=== PATIENT | female | born 1935 | race Caucasian/White ===

== ENCOUNTER 2018-07-21 00:12 | Emergency (ER) | payer BC ==
[~2018-07-21] VITALS: Ht 149.9 cm; Wt 64.5 kg
[2018-07-21] MEDS ORDERED: LORazepam 2 mg/ml vial IV ONE (00:25)
[2018-07-21 00:35] LABS: BASOPHILS # (AUTO) 0.1 X10'3 (0-0.2); BASOPHILS % (AUTO) 0.6 % (0-1); EOSINOPHILS # (AUTO) 0.4 X10'3 (0-0.9); EOSINOPHILS % (AUTO) 3.6 % (0-6); HEMOGLOBIN 12.2 g/dl (12.0-16.0); LYMPHOCYTES # (AUTO) 4.3 X10'3 (1.1-4.8); LYMPHOCYTES % (AUTO) 38.6 % (21-51); MEAN CORPUSCULAR HEMOGLOBIN 30.7 PG (27.0-31.0); MEAN CORPUSCULAR HGB CONC 33.8 g/dL (33.0-36.5); MEAN PLATELET VOLUME 7.8 FL (7.4-10.4); MONOCYTES # (AUTO) 1.2 X10'3 (0-0.9); MONOCYTES % (AUTO) 10.6 % (2-12); NEUTROPHILS # (AUTO) 5.2 X10'3 (1.8-7.7); NEUTROPHILS % (AUTO) 46.6 % (42-75); PLATELET COUNT 371 X10'3 (140-440); RED BLOOD COUNT 3.96 X10'6 (4.20-5.60); RED CELL DISTRIBUTION WIDTH 13.1 % (11.5-14.5); WHITE BLOOD COUNT 11.2 X10'3 (4.5-11.0)
[2018-07-21 00:57] LABS: ALANINE AMINOTRANSFERASE 26 U/L (12-78); ALBUMIN 3.8 G/DL (3.4-5.0); ALBUMIN/GLOBULIN RATIO 1.1 (1.1-1.5); ALKALINE PHOSPHATASE 87 IU/L (46-116); ANION GAP 9 (8-16); ASPARTATE AMINO TRANSFERASE 20 U/L (10-37); BILIRUBIN,TOTAL 0.4 MG/DL (0.1-1.0); BLOOD UREA NITROGEN 15 MG/DL (7-18); BUN/CREATININE RATIO 15.3 (6.6-38.0); CALCIUM 9.3 MG/DL (8.5-10.1); CHLORIDE 96 MMOL/L (99-107); CREATININE 0.98 MG/DL (0.40-0.90); GLUCOSE 90 MG/DL (70-104); MAGNESIUM 1.8 MG/DL (1.5-2.4); SODIUM 132 MMOL/L (135-145); TOTAL CARBON DIOXIDE 27.1 MMOL/L (24-32); TOTAL PROTEIN 7.3 G/DL (6.4-8.2); eGFR 54 ML/MIN
[2018-07-21] MEDS ORDERED: diphenhydrAMINE 50 mg/ml inj IV ONE (01:35)
[2018-07-21 01:54] VITALS: BP 117/68
[2018-07-21 02:28] LABS: D-DIMER 0.37 MG/L FEU (0-0.50)
== END 2018-07-21 01:57 | disposition home or self-care (01) ==
LOC: ER 00:12
DX: R07.89 Other chest pain (principal); R05 Cough; F32.9 Major depressive disorder, single episode, unspecified; E78.00 Pure hypercholesterolemia, unspecified; I10 Essential (primary) hypertension; F41.9 Anxiety disorder, unspecified; Z88.2 Allergy status to sulfonamides
CPT/HCPCS: 36415; 71045; 80053; 83735; 83880; 84145; 84484; 85025; 85379; 93005; 96374; 96375; 99284; J1200; J2060

== ENCOUNTER 2019-08-03 06:58 | Inpatient (IN) | payer BC ==
[2019-07-28 10:30] LABS: BASOPHILS # (AUTO) 0.1 X10'3 (0-0.2); BASOPHILS % (AUTO) 0.8 % (0-1); EOSINOPHILS # (AUTO) 0.2 X10'3 (0-0.9); EOSINOPHILS % (AUTO) 2.8 % (0-6); LYMPHOCYTES # (AUTO) 2.5 X10'3 (1.1-4.8); LYMPHOCYTES % (AUTO) 33.3 % (21-51); MEAN CORPUSCULAR HEMOGLOBIN 30.9 PG (27.0-31.0); MEAN CORPUSCULAR HGB CONC 33.8 g/dL (33.0-36.5); MEAN CORPUSCULAR VOLUME 91.3 FL (78-98); MEAN PLATELET VOLUME 8.2 FL (7.4-10.4); MONOCYTES # (AUTO) 0.7 X10'3 (0-0.9); MONOCYTES % (AUTO) 9.5 % (2-12); NEUTROPHILS # (AUTO) 4.1 X10'3 (1.8-7.7); NEUTROPHILS % (AUTO) 53.6 % (42-75); PRE OP HEMATOCRIT 37.9 % (35.0-45.0); PRE OP HEMOGLOBIN 12.8 g/dL (12.0-16.0); PRE OP PLATELET COUNT 364 X10'3 (140-440); RED BLOOD COUNT 4.15 X10'6 (4.20-5.60); RED CELL DISTRIBUTION WIDTH 13.6 % (11.5-14.5)
[2019-07-28 10:36] LABS: PRE OP PROTIME 10.3 SECONDS (9.0-12.0)
[2019-07-28 10:44] LABS: ALBUMIN 3.6 G/DL (3.4-5.0); ALBUMIN/GLOBULIN RATIO 1.1 (1.1-1.5); ALKALINE PHOSPHATASE 73 IU/L (46-116); BLOOD UREA NITROGEN 12 MG/DL (7-18); BUN/CREATININE RATIO 13.2 (6.6-38.0); CALCIUM 9.2 MG/DL (8.5-10.1); CHLORIDE 106 MMOL/L (99-107); CREATININE 0.91 MG/DL (0.40-0.90); PRE OP ALT 21 U/L (30-65); PRE OP ANION GAP 6 (8-16); PRE OP AST 25 U/L (10-37); PRE OP BILIRUB, TOTAL 0.5 MG/DL (0.0-1.0); PRE OP GLUCOSE 92 MG/DL (70-104); PRE OP SODIUM 139 MMOL/L (135-145); TOTAL CARBON DIOXIDE 27.3 MMOL/L (24-32); TOTAL PROTEIN 6.9 G/DL (6.4-8.2); eGFR 59 ML/MIN
[2019-07-28 10:45] LABS: PRE OP POTASSIUM 4.3 MMOL/L (3.4-5.1)
[~2019-08-03] VITALS: Ht 149.9 cm; Wt 63.0 kg
[~2019-08-03 06:58] MED LIST: MULT-1085 PO; OLME5TAB3 PO; ROSU20TA2 PO
[2019-08-09] MEDS ORDERED: CHOL10006 PO (11:41)
[2019-08-10] VITALS (18 sets, daily range): BP systolic 123–150; BP diastolic 45–85
[2019-08-10] MEDS ORDERED: ringers solution, lacted 1,000 ML IV SCH ×2 (05:00→11:19)
[2019-08-10] MEDS ORDERED: famotidine 20mg tablet PO ONE (05:30)
[2019-08-10] MEDS ORDERED: ceFOXitin 2GM-NS 100mL ADDvant 100 ML IV ONE (05:30)
[2019-08-10] MEDS ORDERED: ceFOXitin sod/dextrose 2g/50ml 50 ML IV ONE (05:30)
[2019-08-10] MEDS ORDERED: BUPIVAcaine/PF 2.5 mg/ml (0.25%) 30ml vial ONE (11:01)
[2019-08-10] MEDS ORDERED: LIDOcaine 1% 30ml preserv. free vial ONE (11:01)
[2019-08-10] MEDS ORDERED: ondansetron/PF 4mg/2ml inj IV PRN ×2 (11:20→15:00)
[2019-08-10] MEDS ORDERED: morphine 2 MG/ML inj. syringe IV PRN (11:20)
[2019-08-10] MEDS ORDERED: morphine 4 MG/ML inj SYRINge IV PRN (11:20)
[2019-08-10] MEDS ORDERED: labetalol 20mg/4ml (5mg/ml) syringe IV PRN (11:20)
[2019-08-10] MEDS ORDERED: hydrALAZINE 20mg/ml inj. IV PRN (11:20)
[2019-08-10] MEDS ORDERED: fentaNYL/PF 50MCG/1 ML 2ML syringe IV PRN ×2 (11:20)
[2019-08-10] MEDS ORDERED: neostigmine methylsulfate 1 MG/ML 10ml vial ONE (11:31)
[2019-08-10] MEDS ORDERED: INDOCYANINE GREEN 25 MG/10 ML VIAL IV ONE (11:31)
[2019-08-10] MEDS ORDERED: sevoflurane 250ml liquid IH ONE (11:31)
[2019-08-10] MEDS ORDERED: dexamethasone sod phosphate 10mg/ml inj ONE (11:31)
[2019-08-10] MEDS ORDERED: glycopyrrolate 0.2mg/ml inj ONE (11:31)
[2019-08-10] MEDS ORDERED: midazolam 2 mg/2 ml injection ONE (11:37)
[2019-08-10] MEDS ORDERED: fentaNYL /PF 50mcg/ml 5ml ampule ONE (11:37)
[2019-08-10] MEDS ORDERED: LIDOcaine 2% (20mg/ml) 5ml vial ONE (11:58)
[2019-08-10] MEDS ORDERED: propofol inj 20 ML IV ONE (11:58)
[2019-08-10] MEDS ORDERED: rocuronium 10mg/ml inj IV ONE (11:58)
[2019-08-10] MEDS ORDERED: ondansetron/PF 4mg/2ml inj ONE (12:24)
--- NOTE | 2019-08-10 14:30 | NUR ---
Received from OR via , accompanied by Anesthesiologist DR ELIZABETH and report given by Anesthesiolgist. AWAKENS TO VOICE. VITALS STABLE. DRESSINGS DI. GABY PAIN. LOCKWOOD WITH CLEAR URINE.
[2019-08-10] MEDS ORDERED: HYDROcodone/acetaminophen 5mg/325mg tablet PO PRN (15:00)
[2019-08-10] MEDS ORDERED: Potassium Cl inj 20 MEQ in ringers solution, lacted 1,000 ML IV SCH ×2 (15:00→23:00)
[2019-08-10] MEDS ORDERED: HYDROmorphone inj. 0.5 MG/0.5 ML DISP.SYRIN IV PRN (15:00)
--- NOTE | 2019-08-10 16:08 | NUR ---
Patient in room PAS IN 900. I have received report from NADIRA Pratt and had the opportunity to ask questions and assume patient care.
--- NOTE | 2019-08-10 16:10 | NUR ---
Report called to receiving nurse. Transferred via BED Belongings . Special Issues communicated to receiving nurse. AWAKE AND ORIENTED. VITALS STABLE. DRESSINGS DI. GABY PAIN. TO SURGICAL RM 350A AT THIS TIME.
[2019-08-10] MEDS: ceFOXitin 1 GM/D5W 50mL IVPB 1,000 GM in normal saline 100ml IV soln 100 ML IV SCH (17:38)
--- NOTE | 2019-08-10 19:07 | NUR ---
Problems reprioritized. Patient report given, questions answered & plan of care reviewed with NADIRA Ahn. Pt A&O x4. tolerating fluids well. at bedside.
--- NOTE | 2019-08-10 19:09 | NUR ---
Patient in room [facility] 346. I have received report from Eliane WADDELL and had the opportunity to ask questions and assume patient care.
[2019-08-10] MEDS: acetaminophen 1,000mg/100ml IV 100 ML IV SCH (20:03)
[2019-08-11] VITALS: BP 133/62
[2019-08-11] MEDS: ceFOXitin 1 GM/D5W 50mL IVPB 1,000 GM in normal saline 100ml IV soln 100 ML IV SCH (00:16)
[2019-08-11] MEDS: acetaminophen 1,000mg/100ml IV 100 ML IV SCH ×2 (02:14→07:52)
[2019-08-11 04:00] VITALS: BP 135/79
[2019-08-11 05:48] LABS: EOSINOPHILS % (AUTO) 0 % (0-6); HEMATOCRIT 36.2 % (35.0-45.0); HEMOGLOBIN 12.1 g/dl (12.0-16.0); LYMPHOCYTES % (AUTO) 10.3 % (21-51); MEAN CORPUSCULAR HGB CONC 33.3 g/dL (33.0-36.5); MEAN CORPUSCULAR VOLUME 90.1 FL (78-98); MEAN PLATELET VOLUME 8.2 FL (7.4-10.4); MONOCYTES % (AUTO) 5.6 % (2-12); PLATELET COUNT 330 X10'3 (140-440); RED BLOOD COUNT 4.02 X10'6 (4.20-5.60); RED CELL DISTRIBUTION WIDTH 13.6 % (11.5-14.5)
[2019-08-11 05:49] LABS: BASOPHILS % (AUTO) 0.1 % (0-1); LYMPHOCYTES # (AUTO) 1.5 X10'3 (1.1-4.8); MONOCYTES # (AUTO) 0.8 X10'3 (0-0.9); NEUTROPHILS # (AUTO) 12.6 X10'3 (1.8-7.7)
[2019-08-11 05:58] LABS: ALBUMIN 3.2 G/DL (3.4-5.0); ANION GAP 8 (8-16); BLOOD UREA NITROGEN 9 MG/DL (7-18); CALCIUM 8.9 MG/DL (8.5-10.1); CHLORIDE 105 MMOL/L (99-107); CREATININE 1.13 MG/DL (0.40-0.90); GLUCOSE 143 MG/DL (70-104); POTASSIUM 4.1 MMOL/L (3.5-5.1); SODIUM 138 MMOL/L (135-145); TOTAL CARBON DIOXIDE 24.6 MMOL/L (24-32); eGFR 46 ML/MIN
--- NOTE | 2019-08-11 06:47 | NUR ---
Problems reprioritized. Patient report given, questions answered & plan of care reviewed with Eliane WADDELL.
--- NOTE | 2019-08-11 06:53 | NUR ---
Patient in room [facility] 350. I have received report from NADIRA Ahn and had the opportunity to ask questions and assume patient care.
[2019-08-11] MEDS ORDERED: atorvastatin 20mg tablet PO SCH (08:00)
[2019-08-11] MEDS ORDERED: enoxaparin 40mg/0.4ml syringe SQ SCH (08:00)
[2019-08-11] MEDS ORDERED: losartan 50mg tablet PO SCH (08:00)
[2019-08-11 08:19] VITALS: BP 146/87
[2019-08-11 12:00] VITALS: BP 141/60
[2019-08-11] MEDS ORDERED: acetaminophen 325mg tablet PO PRN (12:40)
--- NOTE | 2019-08-11 13:39 | NUR ---
Jang Cath D/C'd 650 ml of clear yellow urine collected. pt tolerated well.
[2019-08-11 18:15] VITALS: BP 138/53
--- NOTE | 2019-08-11 18:42 | NUR ---
Patient in room [facility] 350. I have received report from NADIRA [place] and had the opportunity to ask questions and assume patient care.
--- NOTE | 2019-08-11 18:45 | NUR ---
Problems reprioritized. Patient report given, questions answered & plan of care reviewed with NADIRA Kaufman. Pt ambulating, tolerating full liquids diet and voiding well. waiting on discharge orders to go home this soon.
[2019-08-11] MEDS ORDERED: ACET-1008 PO (18:46)
--- NOTE | 2019-08-11 19:13 | NUR ---
Patient discharged home, accompanied by floor aide in wheelchair to waiting vehicle in lobby with spouse. VS stable, temp: 98.1F, 0/10 pain, HR: 93, RR 16, O2: 95% RA, BP: 138/53. IV discontinued, per day shift nurse. Pt states she does not want any pain medication at the this time and will take what she has at home. All belongings with patient. Discharge package explained and given to patient. Questions and concerns answered.
[2019-08-12] MEDS ORDERED: enoxaparin 30mg/0.3ml syringe SQ SCH (08:00)
== END 2019-08-11 19:13 | disposition home or self-care (01) | DRG 331 ==
LOC: EDSTATUS 10:30 → PAS IN 08-10 08:30 → EDSTATUS 08-10 10:45 → SUR 3N 08-10 15:00
PROVIDERS: ADMIT Surgery; ATTEND Surgery
PROC: 0D1B4ZQ Bypass Ileum to Anus, Percutaneous Endoscopic Approach (ICD-10-PCS; 2019-08-10)
PROC: 8E0 Other Procedures, Physiological Systems and Anatomical Regions, Other Procedures (ICD-10-PCS; 2019-08-10)
PROC: 0DTF4ZZ Resection of Right Large Intestine, Percutaneous Endoscopic Approach (ICD-10-PCS; principal; 2019-08-10 11:31)
DX: C18.9 Malignant neoplasm of colon, unspecified (principal)
CPT/HCPCS: Z7506; Z7508; 36415; 80048; 80053; 82948; 85025; 85610; 85730; 86885; 86900; 86901; 87081; 93005; A4215; A4618; G0378; J0131; J0694; J1100; J1650; J2001; J2250; J2405; J2704; J2710; J3010; J3480; J3490; J7120